=== PATIENT | male | born 1960 | race Caucasian/White ===

== ENCOUNTER 2020-03-14 08:20 | Day surgery (SDC) | payer OTHER ==
[2020-03-13 09:42] LABS: HEMATOCRIT 38.7 % (42.0-54.0); HEMOGLOBIN 12.5 g/dL (13.5-17.5); MCHC 32.3 g/dL (31.0-37.0); MEAN PLATELET VOLUME 9.7 fL (7.4-10.4); RBC 4.16 10x6/uL (4.20-6.10); RDW 15.5 % (11.5-14.5); WBC 5.4 10x3/uL (4.8-10.8)
[2020-03-13 09:56] LABS: ANION GAP 8.6 mmol/L (8-16); CARBON DIOXIDE 28.4 mmol/L (21.0-32.0); CREATININE - SERUM 1.1 mg/dL (0.6-1.3)
[~2020-03-14] VITALS: Ht 198.1 cm; Wt 160.9 kg
[~2020-03-14 08:20] MED LIST: ATARAX 25 MG TA25 MG PO; COREG 3.1253.125 MG PO; FUROSEMIDE40 MG PO; GLUCOPHAGE500 MG PO; LIPITOR80 MG PO; LISINOPRIL20 MG PO; MIRALAX17 GM PO; NITROSTAT0.4 MG; PROTONIX40 MG PO
[2020-03-14 09:46] VITALS: BP 136/79; BMI 41.0
[2020-03-14 14:11] VITALS: BP 124/79
[2020-03-14 14:27] VITALS: BP 124/74; Ht 198.1 cm; Wt 160.9 kg
[2020-03-14 14:33] VITALS: BP 129/75
[2020-03-14 16:01] VITALS: BP 125/74
[2020-03-14 20:00] VITALS: BP 152/90
--- NOTE | 2020-03-14 23:19 | NUR ---
ASSESSED AT THE BEGINNING OF THE SHIFT. PT IS ALERT AND ORIENTED, ABLE TO VERBALIZE NEEDS. RIGHT SHOULDER HAS CLEAN DRY DRESSING FROM SHOULDER REPAIR. IT HAS A BLOCK AND HIS SHOULDER IS NOT IN PAIN. HE WAS COMPLAINING ABOUT THE BED AND HOW MUCH HIS BACK HURT, SO HE WAS MEDICATED WITH OXY ORDERED TO HELP HIM REST.
[2020-03-15] VITALS: BP 147/62
[2020-03-15 04:00] VITALS: BP 140/72
--- NOTE | 2020-03-15 06:40 | NUR ---
PT HAS NOT HAD A GOOD NITE. HE HAS FELT THAT HIS PAIN HAS NOT BEEN CONTROLLED BUT HAS HAD HIS MEDS IT COULD BE GIVEN. HE TOOK OFF THE SLING AND HAS HIS ARM PROPPED UP ON A PILLOW BUT STATES HE WILL PUT IT ON IF HE GETS UP.
[2020-03-15 07:18] LABS: HEMATOCRIT 35.8 % (42.0-54.0); HEMOGLOBIN 11.1 g/dL (13.5-17.5); MCH 29.3 pg (26.0-34.0); MCV 94.5 fL (80.0-100.0); MEAN PLATELET VOLUME 10.6 fL (7.4-10.4); RBC 3.79 10x6/uL (4.20-6.10); RDW 15.6 % (11.5-14.5); WBC 6.9 10x3/uL (4.8-10.8)
--- NOTE | 2020-03-15 07:30 | NUR ---
AWAKE AND ALERT. ORIENTED X3. C/O NOT GETTING MUCH SLEEP LAST PM FOR PAIN. WILL ADDRESS. REFUSED OFFER OF PAIN MEDS AT THIS TIME. STATED HE WANTS TO SEE MD FIRST. WILL MONITOR. LUNGS ARE CLEAR BILATERALLY, NO COUGH NOTED. SKIN IS INTACT WITHOUT REDNESS EXCEPT 3 SMALL SITES ON RIGHT SHOULDER WHICH HAVE DRY INTACT DRESSINGS IN PLACE. IV TO LEFT HAND IS PATENT WITHOUT REDNESS AT INSERTION SITE. DENIES NEEDS.
[2020-03-15 08:10] VITALS: BP 127/76
[2020-03-15] MEDS ORDERED: VISTARIL50 MG PO (09:24)
--- NOTE | 2020-03-15 09:49 | NUR ---
ATE ALL OF BREAKFAST HE WANTED. REFUSED OFFER OF ALTERNATIVE MEAL. TOOK AM MEDS WITHOUT DIFFICULTY. REQUESTED AND GIVEN 10MG OXY WITH 50MG VISTARIL PO FOR C/O RIGHT SHOULDER PAIN LEVEL 8. WILL MONITOR.
[2020-03-15] MEDS ORDERED: PERCOCET 10-321 EAC1 PO (09:51)
--- NOTE | 2020-03-15 10:30 | NUR ---
RESTING QUIETLY WITH EYES CLOSED. REPORTS PAIN EASED AFTER MEDS GIVEN.
--- NOTE | 2020-03-15 12:30 | NUR ---
DISCHARGED TO HOME AMBULATORY WITH FAMILY. DISCHARGE INSTRUCTIONS GIVEN BOTH VERBALLY AND WRITTEN. ALL QUESTIONS ANSWERED. PATIENT VERBALIZED UNDERSTANDING OF SAME. NEEDED PRESCRIPTIONS GIVEN TO PATIENT. ALL BELONGINGS WITH PATIENT.
--- NOTE | 2020-03-15 12:32 | OP ---
PATIENT NAME: HUNG SALAS MEDICAL RECORD: [id number] :62 LOCATION:[facility] D.1211 ADMISSION DATE: SURGEON: CODY SOSA DO DATE OF OPERATION: 03/14/2020 PROCEDURE PERFORMED: Right shoulder arthroscopy with subacromial decompression, distal clavicle excision, biceps tenodesis, and labral debridement. PREOPERATIVE DIAGNOSES: Right shoulder SLAP tear, AC joint arthritis, subacromial impingement. POSTOPERATIVE DIAGNOSES: Right shoulder SLAP tear, AC joint arthritis, subacromial impingement. INDICATIONS: Mr. Salas is a 59-year-old male who has had the SLAP tear for quite some time and he is tired of dealing with the pain. He tried injections to no avail. He wanted something done surgically. I informed him of the risks including infection, bleeding, damage to nerves and vessels, Danyel deformity, continued pain, frozen shoulder, blood clots, and even . He signed the consent. SURGEON: Cody Sosa DO DESCRIPTION OF PROCEDURE: The patient was taken to the operative suite after given a block by anesthesia in the preoperative area, given 900 mg of clindamycin, laid in the left lateral decubitus position with the right shoulder up. He was then sedated and an LMA was placed. The right shoulder was then prepped and draped in sterile fashion. A time-out was performed and everyone was in agreement with the correct side, site, patient, and procedure. I then began by inflating the shoulder joint through posterior portal with 18-gauge spinal needle with 60 mL of normal saline. I established portal with an 11 blade scalpel. I then entered the trocar into the shoulder joint. An anterior portal was then established with an 18-gauge spinal needle and 11-blade scalpel and trocar entered in. I then inspected the SLAP tear. It was quite severe. It is a type 3 SLAP tear. I checked the subscapularis and the infraspinatus, supraspinatus and there were no tears seen in that. I then brought in a burner and did a biceps tenotomy and labral debridement. The joint surface looked good. There was no chondromalacia seen and nothing in the inferior gutter. I went to the subacromial space. I established a lateral portal with an 18-gauge spinal needle and 11-blade scalpel and trocar entered in. I used the shaver and a burner to clean up the subacromial space and performed a distal lateral acromioplasty and a distal clavicle excision through the anterior portal and removed a significant amount of bursa in the area. It is quite inflamed. I then removed the instruments and brought my attention to the anterior humerus. I made an incision. I made careful dissection down to the long head of the biceps tendon, pulled it out through the incision, put a unicortical 2.7 JuggerLoc loop stitch anchor in then looped the long head of the biceps tendon through that. I cinched it down to the humerus. I then sutured the long head of the biceps tendon with excess suture to the anchor sutures and tied it down. I then irrigated and Dami Chaney, certified director medical surgical, closed the site with 2-0 Vicryl in inverted fashion, 4-0 Monocryl running on the skin, and 4-0 Monocryl in inverted interrupted fashion in all the portal sites and then dressed with Dermabond, Telfa, and Tegaderm. He was awakened, put in a sling, and taken to the recovery in stable condition. OPERATIVE REPORT [id number] HUNG SALAS BLOOD LOSS: Minimal. COMPLICATIONS: None. NTS:[id number] Voice Confirmation ID: [id number] DOCUMENT ID: [id number] CODY SOSA DO at 1232 CC: [id number] DICTATION DATE: 03/14/20 1411 TICKER INSTALLER: 03/15/20 0222 [facility] [address] [id number]
== END 2020-03-15 12:30 | disposition home or self-care (01) ==
LOC: D.M3 08:20 → D.OPS 08:20 → D.M3 12:48 → D.OPS 17:40 → D.PAN 18:45 → D.OPS 18:45
PROVIDERS: Anesthesiology; ATTEND Orthopaedic Surgery
DX: S43.431D Superior glenoid labrum lesion of right shoulder, subsequent encounter (principal); M13.811 Other specified arthritis, right shoulder; M75.41 Impingement syndrome of right shoulder; M25.511 Pain in right shoulder; I10 Essential (primary) hypertension; S49.91XD Unspecified injury of right shoulder and upper arm, subsequent encounter; X58.XXXD Exposure to other specified factors, subsequent encounter

== ENCOUNTER 2020-10-29 05:05 | Day surgery (SDC) | payer BC ==
[2020-10-28 13:08] LABS: BASOPHILS 0.2 % (0-2); HEMATOCRIT 40.5 % (42.0-54.0); HEMOGLOBIN 13.4 g/dL (13.5-17.5); IMMATURE GRANULOCYTES 1.2 % (0-5); LYMPHOCYTE ABS# 1.38 10x3/uL (1.32-3.57); MCH 31.3 pg (26.0-34.0); MCHC 33.1 g/dL (31.0-37.0); MCV 94.6 fL (80.0-100.0); MEAN PLATELET VOLUME 9.7 fL (7.4-10.4); MONOCYTES 8.4 % (2-11); NEUTROPHIL ABS# 5.86 10x3/uL (1.78-5.38); NEUTROPHILS 72.2 % (40-80); PLATELET COUNT 244 10x3/uL (130-400); RBC 4.28 10x6/uL (4.20-6.10); RDW 15.1 % (11.5-14.5); WBC 8.1 10x3/uL (4.8-10.8)
[2020-10-28 13:17] LABS: ANION GAP 13.3 mmol/L (8-16); CALCIUM 9.2 mg/dL (8.5-10.1); CARBON DIOXIDE 25.8 mmol/L (21.0-32.0); CREATININE - SERUM 1.2 mg/dL (0.6-1.3); POTASSIUM - SERUM 5.1 mmol/L (3.5-5.1)
[~2020-10-29] VITALS: Ht 198.1 cm; Wt 155.5 kg
[~2020-10-29 05:05] MED LIST changes: +PERCOCET 10-321 EAC1 PO; +PREDNISONE10 MG PO; +VISTARIL50 MG PO; +ZANAFLEX4 MG PO
[2020-10-29] MEDS ORDERED: HCTZ25 MG PO (06:13)
[2020-10-29 06:16] VITALS: BP 156/92; Ht 198.1 cm; Wt 155.5 kg
[2020-10-29] MEDS ORDERED: VISTARIL50 MG PO (08:19)
[2020-10-29] MEDS ORDERED: PERCOCET 10-321 EAC1 PO (08:19)
--- NOTE | 2020-10-29 09:32 | NUR ---
PT UP TO THE BATHROOM W/ 2 PERSON ASSIST. PT ABLE TO VOID.
--- NOTE | 2020-10-29 09:53 | NUR ---
PT DENIES NEEDS AT THIS TIME. WILL CONTINUE TO MONITOR.
--- NOTE | 2020-10-29 10:29 | NUR ---
DC INSTRUCTIONS GIVEN TO PT. STATES UNDERSTANDING. PT UNABLE TO BE PICKED UP BY CNC MACHINIST 2ND SHIFT UNTIL ABOUT 1200. DENIES NEEDS AT THIS TIME. WILL CONTINUE TO MONITOR.
--- NOTE | 2020-10-29 12:54 | NUR ---
PAGED DR. SOSA REGARDING PT'S DRESSING THAT HAS BECOME MORE SATURATED. INFORMED HIM OF THE SITUATION. DR. SOSA ORDERED 4X4 DRESSING AND TEGADERM TO REINFORCE INCISION SITE. WILL DC AFTERWARDS.
--- NOTE | 2020-10-29 12:56 | NUR ---
PT LEFT UNIT VIA WC AT 1304
--- NOTE | 2020-10-29 15:05 | OP ---
PATIENT NAME: HUNG SALAS MEDICAL RECORD: [id number] :62 LOCATION:[facility] ADMISSION DATE: SURGEON: CODY SOSA DO DATE OF OPERATION: 10/29/2020 PROCEDURE PERFORMED: Left shoulder arthroscopy with rotator cuff repair, distal clavicle excision, subacromial decompression and biceps tenodesis. PREOPERATIVE DIAGNOSES: Left shoulder SLAP tear, AC joint arthritis, subacromial impingement. POSTOPERATIVE DIAGNOSES: Left shoulder SLAP tear, AC joint arthritis, subacromial impingement, partial thickness rotator cuff tear. INDICATIONS: Mr. Salas is a 60-year-old male who has had left shoulder pain for quite some time. He had an MRI showing the above findings, save the partial thickness rotator cuff tear. He had pain for quite some time. He wonders finally I want something done surgically, just tired of dealing with the pain. I informed him of the risks and benefits of this including infection, bleeding, damage to nerves or vessels, frozen shoulder syndrome, continued pain, need for further surgery, and need to fix the rotator cuff if it was torn. He was okay with all that and he signed the consent. SURGEON: Cody Sosa DO. DESCRIPTION OF PROCEDURE: The patient was taken to the operative suite after getting a block by anesthesia in preoperative area, given 900 mg clindamycin, laid in the right lateral decubitus position with the left shoulder up, sedated and LMA was placed. The left shoulder was prepped and draped in sterile fashion. A timeout was performed. Everyone was in agreement with correct side, site, patient and procedure. I then began by inserting an 18-gauge spinal needle through the posterior portal into the joint. I then inflated it with 60 mL normal saline and made the posterior portal with an 11-blade scalpel. Trocar was then entered into the joint. Anterior portal was established with an 18-gauge spinal needle and an 11-blade scalpel. Trocar was brought into the anterior portal as well. I then inspected the shoulder. He had a large SLAP tear, type 2. He also had some cartilage damage in the glenoid. The central portion of it was in the inferior gutter. His subscapularis tendon was in good repair. I then brought in a burner and did a biceps tenotomy at that point of the long head of the biceps tendon. I then saw the partial thickness tear of the supraspinatus tendon and brought in a shaver and debrided it as it was just on the anterior fibers including about 50% of the tendon or more. Due to that fact, I prepared for a rotator cuff repair using Regeneten. I then went to the bursal side and he had a significant amount of inflammation there. I established a lateral portal with an 18-gauge spinal needle and 11-blade scalpel, brought a trocar in and a shaver. I removed the bursa and did a subacromial decompression with a bur with doing an acromioplasty. I then brought that through the anterior portal and did a distal clavicle excision as well, opened up the AC joint approximately 7 mm. His acromion and clavicle were essentially touching. I then went back into the joint and marked the articular-sided tear with an 18-gauge spinal needle through the lateral portal. I then reprepped the shoulder with chlorhexidine. Once it dried, I extended the lateral portal incision and made blunt dissection down to the rotator cuff, cleaned off the bursa and placed the Regeneten implant, stapled into place on the tear site on the bursal side for the articular-sided tear. I then went to OPERATIVE REPORT [id number] HUNG SALAS the anterior humerus, made a small incision. I made careful dissection down to the long head of the biceps tendon in the subpectoral region and dissected it out, put a unicortical hole in the humerus and put a 2.9 JuggerLoc anchor in the humerus, looped the biceps tendon through it, pulled, tensioned and cinched it down to the humerus. I then cut the loop suture and used the free needle, went back through the tendon twice, tied it down and then cut the excess tendon and suture. I then irrigated. Dami Chaney, ase certified technician, closed the areas with 2-0 Vicryl in inverted interrupted fashion and 4-0 Monocryl running on the skin and the open areas of portal sites with 4-0 Monocryl in inverted interrupted fashion and placed Dermabond glue on them all and dressed them with Telfa and Tegaderm. He was then awakened, put in a sling and taken to recovery in stable condition. BLOOD LOSS: Minimal. COMPLICATIONS: None. TRANSINT:[id number] Voice Confirmation ID: [id number] DOCUMENT ID: [id number] CODY SOSA DO at 1505 CC: [id number] DICTATION DATE: 10/29/20822 MAINTENANCE MACHINIST: 10/29/20905 [facility] 10/29/[address] [id number] [place] [id number]
== END 2020-10-29 13:04 | disposition home or self-care (01) ==
LOC: D.OPS 05:05
PROVIDERS: Anesthesiology; ATTEND Orthopaedic Surgery
DX: S43.432A Superior glenoid labrum lesion of left shoulder, initial encounter (principal); M25.812 Other specified joint disorders, left shoulder; X58.XXXA Exposure to other specified factors, initial encounter; I10 Essential (primary) hypertension